=== PATIENT | female | born 1985 | race Caucasian/White ===

== ENCOUNTER 2016-10-13 01:04 | Emergency (ER) | payer OTHER ==
[~2016-10-13] VITALS: Ht 167.6 cm; Wt 96.0 kg
[2016-10-13] MEDS ORDERED: OMEP40CA2 PO (01:18)
[2016-10-13] MEDS ORDERED: AUGM500T34 PO (03:10)
[2016-10-13] MEDS ORDERED: AUGMENTIN 500 MG TAB PO ONE (03:15)
[2016-10-13 03:30] VITALS: BP 140/74
== END 2016-10-13 03:32 | disposition home or self-care (01) ==
LOC: M ED 02:01
DX: T14.8 Other injury of unspecified body region (principal); S30.811A Abrasion of abdominal wall, initial encounter; W55.03XA Scratched by cat, initial encounter; Y92.9 Unspecified place or not applicable; Y93.9 Activity, unspecified; Y99.9 Unspecified external cause status; Z79.899 Other long term (current) drug therapy

== ENCOUNTER → 2017-01-30 | Outpatient (REF) | payer OTHER ==
[~2017-01-30] MED LIST: AUGM500T34 PO; OMEP40CA2 PO
== END ==
LOC: M LAB REF 10:11
PROVIDERS: ATTEND Physician Assistant
DX: J02.9 Acute pharyngitis, unspecified (principal)

== ENCOUNTER → 2017-04-19 | Outpatient (CLI) | payer OTHER ==
[2017-04-19 13:49] LABS: MEAN CORPUSCULAR HEMOGLOBIN 30.2 pg (27.0-33.0); MEAN CORPUSCULAR HGB CONC 33.3 g/dl (32.0-36.5); MEAN CORPUSCULAR VOLUME 90.7 fl (80.0-96.0); RED CELL DISTRIBUTION WIDTH 13.4 % (11.5-14.5); WHITE BLOOD COUNT 7.7 10^3/uL (4.0-10.0)
[2017-04-19 14:21] LABS: PLT CLUMPS? POS FLAG; POS COUNT POS FLAG
[2017-04-19 14:22] LABS: FREE T4 0.86 NG/DL (0.76-1.46)
== END ==
LOC: M SMT 09:40
PROVIDERS: ATTEND Advanced Practice Midwife
DX: Z01.419 Encounter for gynecological examination (general) (routine) without abnormal findings (principal); R63.5 Abnormal weight gain; Z11.51 Encounter for screening for human papillomavirus (HPV)
CPT/HCPCS: 36415; 84439; 84443; 85027; G0123

== ENCOUNTER → 2018-06-16 | Outpatient (REF) | payer BC | LOC: M LAB REF 16:53 | PROVIDERS: ATTEND Advanced Practice Midwife | DX: Z12.4 Encounter for screening for malignant neoplasm of cervix (principal); Z11.51 Encounter for screening for human papillomavirus (HPV) | CPT/HCPCS: 87624; G0123 ==